=== PATIENT | female | born 2000 | race Caucasian/White ===

== ENCOUNTER 2020-10-18 21:20 | Emergency (ER) | payer OTHER ==
[~2020-10-18] VITALS: Ht 170.2 cm; Wt 56.7 kg
[2020-10-18 21:28] VITALS: BP 132/78; Ht 170.2 cm; Wt 56.7 kg
== END 2020-10-18 22:17 | disposition home or self-care (01) ==
LOC: ED 21:20
DX: S01.81XA Laceration without foreign body of other part of head, initial encounter (principal); W54.0XXA Bitten by dog, initial encounter; Y93.89 Activity, other specified; Y92.89 Other specified places as the place of occurrence of the external cause; Y99.8 Other external cause status
CPT/HCPCS: 90715